=== PATIENT | male | born 1985 | race Two or more races ===

== ENCOUNTER 2019-01-30 11:23 | Outpatient (CLI) | payer MEDICAID ==
--- NOTE | 2019-01-31 08:12 | XRAY Report ---
Reason: BILAT FOOT BACK PAIN Procedure Date: 01/30/2019 Accession Number: [id number] / [id number] Procedure: XR - Lumbar Spine Complete CPT Code: FULL RESULT: EXAM: LUMBOSACRAL SPINE RADIOGRAPHY EXAM DATE: 01/30/2019 11:57 AM. CLINICAL HISTORY: Bilateral foot, back pain. COMPARISONS: None. TECHNIQUE: 5 views. FINDINGS: Alignment: Normal. No spondylolisthesis or scoliosis. Bones: Five [id number] lumbar vertebral bodies are present. No fractures or bone lesions. The bilateral pars appear intact on oblique views. Disks: Normal. Disk heights are maintained. Facets: No degenerative changes. Sacroiliac Joints: Unremarkable. Soft Tissues: Normal. The visualized bowel gas pattern is normal. IMPRESSION: Normal lumbar spine radiography. [facility]
--- NOTE | 2019-01-31 08:13 | XRAY Report ---
Reason: BILAT FOOT BACK PAIN Procedure Date: 01/30/2019 Accession Number: [id number] / [id number] Procedure: XR - Foot 3 View BILAT CPT Code: FULL RESULT: EXAMS: 1. RIGHT FOOT RADIOGRAPHY 2. LEFT FOOT RADIOGRAPHY EXAM DATE: 01/30/2019 11:57 AM. CLINICAL HISTORY: Bilateral foot, back pain. COMPARISON: None. TECHNIQUE: 3 views each foot. FINDINGS: Right: Bones: Normal. No fractures or bone lesions. Accessory ossicle adjacent to the navicular. Joints: Minor degenerative changes noted of the first MTP. Minor osteophytosis dorsal first tarsometatarsal joint. Soft Tissues: Normal. No soft tissue swelling. Left: Bones: Normal. No fractures or bone lesions. Joints: Minor degenerative osteophytosis dorsal first tarsometatarsal joint. Soft Tissues: Normal. No soft tissue swelling. IMPRESSION: No fractures. Minor degenerative changes. [facility]
== END 2019-01-30 11:24 | disposition home or self-care (01) ==
LOC: DI 11:23
PROVIDERS: ATTEND Physician Assistant Medical
DX: M19.072 Primary osteoarthritis, left ankle and foot (principal); M19.071 Primary osteoarthritis, right ankle and foot; M54.5 Low back pain
CPT/HCPCS: 72110